=== PATIENT | male | born 1985 | race American Indian/Alaskan Native ===

== ENCOUNTER 2019-04-18 20:33 | Emergency (ER) | payer MEDICAID, OTHER ==
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
[2019-04-18 22:05] LABS: ACETAMINOPHEN 0 ug/mL (10-30)
== END 2019-04-19 09:45 | disposition home or self-care (01) ==
LOC: JD.ED 20:33
DX: F10.120 Alcohol abuse with intoxication, uncomplicated (principal); Y90.0 Blood alcohol level of less than 20 mg/100 ml; S60.811A Abrasion of right wrist, initial encounter; E11.9 Type 2 diabetes mellitus without complications; X58.XXXA Exposure to other specified factors, initial encounter
CPT/HCPCS: 36415; 80053; 80306; 81001; 85025; 99282; 99283; G0480